=== PATIENT | male | born 1955 | race Caucasian/White ===

== ENCOUNTER → 2018-10-07 | Outpatient (CLI) | payer MEDICARE, OTHER ==
[~2018-10-07] MED LIST: CATHETER FLUSH 10 ML SYR IV PRN
--- NOTE | 2018-10-07 18:16 | Diagnostic Imaging Report ---
INDICATION: Right upper quadrant pain. TECHNIQUE: Patient was administered 5.4 mCi technetium 99m Choletec intravenously and imaging over the abdomen was performed. At 60 minutes, patient ingested 8 ounces of Ensure and gallbladder ejection fraction was calculated. FINDINGS: There is homogeneous uptake of activity by the liver with prompt excretion of activity into the common duct and gallbladder. Normal passage of activity into the small bowel is seen. Gallbladder ejection fraction is 96%. IMPRESSION: 1. No evidence of cystic duct or common bile duct obstruction. 2. Gallbladder ejection fraction of 96%. Dictated by: Dictated on workstation # [id number]
== END ==
LOC: CARD 09:50 → EDUNIT# 10:00
PROVIDERS: ATTEND Family Medicine
DX: R10.11 Right upper quadrant pain (principal)
CPT/HCPCS: 78227

== ENCOUNTER 2018-10-25 06:08 | Outpatient (CLI) | payer OTHER ==
[~2018-10-25] VITALS: Ht 181.6 cm; Wt 136.1 kg
[2018-10-25] MEDS ORDERED: LOSA25TA6 PO (09:17)
[2018-10-25] MEDS ORDERED: CYAN50008 PO (09:17)
[2018-10-25] MEDS ORDERED: INSU100V6 SQ (09:17)
[2018-10-25] MEDS ORDERED: SENN25TA PO (09:17)
[2018-10-25] MEDS ORDERED: METO-310 PO (09:17)
[2018-10-25] MEDS ORDERED: METF-397 PO (09:17)
[2018-10-25] MEDS ORDERED: ONDN4T PO (09:17)
[2018-10-25] MEDS ORDERED: ATOR40TA70 PO (09:17)
[2018-10-25] MEDS ORDERED: MELA5CAP PO (09:17)
[2018-10-25] MEDS ORDERED: INSU100V16 SQ ×2 (09:17)
[2018-10-25] MEDS ORDERED: AMLO5TAB7 PO (09:17)
[2018-10-25] MEDS ORDERED: SERT50TA2 PO (09:17)
[2018-10-25] MEDS ORDERED: EXEN2VIA SQ (09:17)
[2018-10-25] MEDS ORDERED: RANI150T46 PO (09:17)
== END 2018-10-25 09:18 | disposition home or self-care (01) ==
LOC: PREOP 06:08
PROVIDERS: ATTEND Surgery
DX: Z01.818 Encounter for other preprocedural examination (principal)

== ENCOUNTER 2018-10-29 10:50 | Day surgery (SDC) | payer OTHER ==
[~2018-10-29] VITALS: Ht 181.6 cm; Wt 136.1 kg
[~2018-10-29 10:50] MED LIST changes: +AMLO5TAB7 PO; +ATOR40TA70 PO; -CATHETER FLUSH 10 ML SYR IV PRN; +CYAN50008 PO; +EXEN2VIA SQ; +INSU100V16 SQ; +INSU100V6 SQ; +LOSA25TA6 PO; +MELA5CAP PO; +METF-397 PO; +METO-310 PO; +ONDN4T PO; +RANI150T46 PO; +SENN25TA PO; +SERT50TA2 PO
--- NOTE | 2018-10-29 10:54 | Conscious Sedation/ASA ---
Conscious Sedation Pre-Proced Time 10:50 ASA Score 2 For ASA 3 and 4: Consider anesthesia and medical clearance. Also, for patients with a history of failed moderate sedation consider anesthesia. Airway Lungs Heart ASA score ASA 1: a normal healthy patient ASA 2: a patient with a mild systemic disease (mid diabetes, controlled hypertension, obesity ASA 3: a patient with a severe systemic disease that limits activity (angina , COPD, prior Myocardial infarction) ASA 4: a patient with an incapacitating disease that is a constant threat to life (CHF, renal failure) ASA 5: a moribund patient not expected to survive 24 hrs. (ruptured aneurysm) ASA 6: a declared brain patient whose organs are being harvested. For emergent operations, add the letter E after the classification Mallampati Classification Grade 2 Sedation Plan Analgesia, Amnesia, Plan communicated to team members, Discussed options with patient/fam, Discussed risks with patient/fam The patient is an appropriate candidate to undergo the planned procedure, sedation, and anesthesia. The patient immediately re-assessed prior to indication. VIGNESH ARGUELLO MD Oct 29, 2018 10:54
--- NOTE | 2018-10-29 10:55 | Progress Note-Pre Operative ---
Pre-Operative Progress Note H&P Reviewed The H&P was reviewed, patient examined and no changes noted. Date Seen by Provider: Oct 29, 2018 Time Seen by Provider: 10:50 Date H&P Reviewed: Oct 29, 2018 Time H&P Reviewed: 10:50 Pre-Operative Diagnosis: GERD, hx colon polyp VIGNESH ARGUELLO MD Oct 29, 2018 10:55
[2018-10-29] MEDS ORDERED: PANT40TA2 PO (10:56)
--- NOTE | 2018-10-29 10:57 | Discharge Inst-Surgical ---
D/C Lap Instructions-KIDO New, Converted, or Re-Newed RX: RX on Chart Follow Up PRN or 10 yrs Activity as tolerated High Fiber Diet 25g or more per day Avoid Alcohol, Caffeine, Spicy [place] and Acid foods. Drink 64 fluid oz or more of fluids per day. Symptoms to Report: Fever over 101 degree F, Nausea/Vomiting If any problems/questions: Contact your physician or go to Emergency Room VIGNESH ARGUELLO MD Oct 29, 2018 10:57
[2018-10-29] MEDS ORDERED: ACETAMINOPHEN 325 MG TABLET PO PRN (11:00)
[2018-10-29] MEDS ORDERED: morphine INJ 10 MG/ML 1ML (SYR OR VIAL) IV PRN (11:00)
[2018-10-29] MEDS ORDERED: HYDROcodone/APAP 5 MG/325 MG (LORTAB) TAB PO PRN (11:00)
[2018-10-29] MEDS ORDERED: ONDANSETRON 4 MG/2 ML (SDV) Z0FRAN IV PRN (11:00)
[2018-10-29] MEDS ORDERED: LACTATED RINGERS 1,000 ML IV ONE (11:10)
[2018-10-29] MEDS ORDERED: PROPOFOL INJECTION 50 ML IV ONE ×2 (11:19→11:52)
[2018-10-29] MEDS ORDERED: MIDAZOLAM 2 MG/2 ML (VERSED) VIAL ONE (11:19)
[2018-10-29] MEDS ORDERED: LIDOCAINE JELLY 2% 6 ML SYRINGE ONE (11:32)
[2018-10-29] MEDS ORDERED: HURRICAINE EXT TUBE (BENZOCAINE) ONE (11:32)
[2018-10-29] MEDS ORDERED: LACTATED RINGERS 1,000 ML IV STA (11:51)
[2018-10-29 11:54] VITALS: BP 182/87
[2018-10-29] MEDS ORDERED: HURRICAINE EXT TUBE (BENZOCAINE) XX PRN (12:00)
[2018-10-29] MEDS ORDERED: LIDOCAINE JELLY 2% 6 ML SYRINGE MM PRN (12:00)
[2018-10-29 12:25] VITALS: BP 159/85
--- NOTE | 2018-10-29 12:33 | Progress Note-Post Operative ---
Post-Operative Progess Note Surgeon (s)/Electrical Fitter (s) Surgeon VIGNESH ARGUELLO MD Electrical Fitter: none Pre-Operative Diagnosis GERD, hx colon polyp Post-Operative Diagnosis reflux esophagitis(stage 2), small HH(1.5cm), moderate gastritis. mild chronic stage 2 ext and int hemorrhoids, small polyp ascending colon. Procedure & Operative Findings Date of Procedure 10/29/18 Procedure Performed/Findings EGD with bx. Colonoscopy with bx. Anesthesia Type MAC Estimated Blood Loss Estimated blood loss (mL): minimal Specimens/Packing Specimens Removed GE jxn, antrum, asc colon polyp VIGNESH ARGUELLO MD Oct 29, 2018 12:33
[2018-10-29 12:55] VITALS: BP 159/80
[2018-10-29 13:11] VITALS: BP 159/80
--- NOTE | 2018-10-29 21:51 | OPERATIVE REPORT ---
DATE OF SERVICE: 10/29/2018 ATTENDING PRIMARY CARE PHYSICIAN: Aida Weller MD PREOPERATIVE DIAGNOSES: History of colon polyps, gastroesophageal reflux disease. POSTOPERATIVE DIAGNOSES: Reflux esophagitis stage II, small hiatal hernia approximately 1.5 cm in size, moderate severity gastritis. Pylorus and duodenum appeared normal. Chronic stage II external and internal hemorrhoids, small polyp of the ascending colon approximately 4 mm in size. PROCEDURE: EGD with biopsy, colonoscopy with biopsy. SURGEON: Vignesh Arguello MD ANESTHESIA: Monitored anesthesia care. ESTIMATED BLOOD LOSS: Minimal. FINDINGS: EGD: Reflux esophagitis stage II. No ulcers or strictures. Small hiatal hernia approximately 1.5 cm in size, moderate severity gastritis with very small antral erosions, no formal ulcerations. Pylorus and duodenum appeared normal, and no distal obstructions. Colonoscopy: Chronic stage II external and internal hemorrhoids, small polyp of the ascending colon approximately 4 mm in size. DISPOSITION: The patient tolerated the procedure well. INDICATIONS: The patient is a 62-year-old male with epigastric as well as right upper abdominal quadrant pain, bloating as well as constipation. He states that his symptoms have been occurring for the past several weeks. He also reports nausea; however, no vomiting. He has had a CT scan of the abdomen, which was normal. He is now scheduled for HIDA scan, which has not been completed yet. He does currently take Zantac as well as Reglan and reports taking PPI acid reducers in the past. He reports that his reflux symptoms have also worsened. His last colonoscopy was approximately 5 years ago where a polyp was identified. He does not report any family history of colon cancer. DESCRIPTION OF PROCEDURE: The patient was brought to the operating room, laid in the left lateral decubitus position with head slightly elevated. After adequate IV pain and sedative medications and monitored anesthesia care, the mouthpiece was applied. The endoscope was then placed in the mouth visualizing the pharynx and hypopharyngeal region. Vocal cords, epiglottis and vallecula identified and appeared to be normal. The endoscope was then gently intubated at the esophageal opening and esophagus insufflated. The endoscope was then advanced to the first, second and third portion of the esophagus at the level of GE junction, a reflux esophagitis stage II identified. There were no ulcers or strictures identified in this region. A biopsy was taken using forceps with visualization of good hemostasis. The endoscope was then advanced in the stomach and endoscope retroflexed, visualizing a small hiatal hernia approximately 1.5 cm in size. There was a moderate severity gastritis more focused towards antrum with some small antral erosions; however, no formal ulcerations. A biopsy was taken of the antrum to rule out H. pylori with forceps with visualization of good hemostasis. Endoscope was then advanced to the pylorus into the first and second portion of the duodenum, which appeared normal. No distal obstructions. The endoscope was slowly withdrawn while taking a second look and suctioning of residual air with no additional findings. The patient tolerated this portion of the procedure well. For his reflux esophagitis, hiatal hernia and gastritis, we will recommend the necessary lifestyle and diet accommodation including small and more frequent meals, avoiding to eating at night as well as head elevation while lying supine. He also needs to avoid caffeinated beverages, spicy, greasy and acidic foods. We will also start him on Protonix 40 mg daily. Under the same anesthesia, we then proceeded with the colonoscopy portion of procedure. A digital rectal examination was performed, which revealed mild chronic stage II external and internal hemorrhoids, not actively edematous nor inflamed and no bleeding. Normal sphincter tone was felt and there were no palpable masses. Prostate gland was palpable and appeared normal. The endoscope was then intubated into the anus and rectum gently insufflated. The endoscope was then advanced to the valves of Nichols of the rectum with no polyps or any neoplasms identified. We then proceeded through the sigmoid colon where no diverticulosis identified. The endoscope was then advanced to the remainder of the descending, transverse, and ascending colon. At the ascending colon, a small polyp approximately 3 to 4 mm in size were identified. This was biopsied and destroyed using forceps and electrocautery with visualization of good hemostasis. The endoscope was then advanced to the cecum, which was normal. The endoscope was then slowly withdrawn while taking a second look and suctioning of residual air with no additional findings. The patient tolerated the procedure well. We will recommend a high fiber diet with at least 30 grams of fiber per day as well as copious amounts of water to promote soft stools on a daily basis. He does not have any family history of colon cancer and we will await the biopsy results and if this is a benign hyperplastic polyp, he may wait 10 years; however; if there is any villous component to an adenomatous polyp, we will then recommend three years. Job ID: [id number] DocumentID: [id number] Dictated Date: 10/29/2018 12:19:26 Pediatric Clinical Dietician Date: 10/29/2018 21:50:40 Dictated By: VIGNESH ARGUELLO MD
== END 2018-10-29 13:05 | disposition home or self-care (01) ==
LOC: ENDO 10:50
PROVIDERS: ATTEND Surgery
DX: Z12.11 Encounter for screening for malignant neoplasm of colon (principal); D12.2 Benign neoplasm of ascending colon; K64.1 Second degree hemorrhoids; K21.0 Gastro-esophageal reflux disease with esophagitis; K44.9 Diaphragmatic hernia without obstruction or gangrene; I10 Essential (primary) hypertension; E11.9 Type 2 diabetes mellitus without complications; E66.01 Morbid (severe) obesity due to excess calories; Z68.41 Body mass index [BMI] 40.0-44.9, adult; Z79.4 Long term (current) use of insulin; Z79.899 Other long term (current) drug therapy
CPT/HCPCS: 82962

== ENCOUNTER 2018-11-06 07:45 | Emergency (ER) | payer OTHER | END 2018-11-06 11:09 | disposition home or self-care (01) | LOC: ER 07:45 ==

== ENCOUNTER → 2018-11-18 | Outpatient (CLI) | payer OTHER ==
[~2018-11-18] MED LIST changes: -AMLO5TAB7 PO; +AMLO5TAB9 PO; +LOSA25TA41 PO; -LOSA25TA6 PO; +PANT40TA2 PO
== END ==
LOC: CARD 08:16
PROVIDERS: ATTEND Internal Medicine Interventional Cardiology
DX: R42 Dizziness and giddiness (principal); R55 Syncope and collapse
CPT/HCPCS: 93225; 93226

== ENCOUNTER → 2018-12-02 | Outpatient (CLI) | payer OTHER ==
[2018-12-02] VITALS (14 sets, daily range): BP systolic 73–170; BP diastolic 41–102
[~2018-12-02] VITALS: Ht 180.3 cm; Wt 136.1 kg
[~2018-12-02] MED LIST changes: +ATROPINE INJECTION 1 MG/10 ML SYR (ABBOTT) INJ PRN; +ATROPINE INJECTION 1 MG/10 ML SYR (ABBOTT) ONE; +MECL-106 PO; +NS IV 1000 ML 1,000 ML IV ONE; +NS IV 1000 ML 1,000 ML ONE
--- NOTE | 2018-12-02 11:04 | NUR ---
all discharge instructions and follow up appointment information were given to patient in print out form and discussed. patient verbalized understanding.
--- NOTE | 2018-12-02 12:16 | Cardiology Tilt Table Test ---
Cardiology-Tilt Table Test Tilt Table Test Date 12/02/18 Baseline Vitals Vital Signs Date Time Temp Pulse Resp B/P (MAP) Pulse Ox O2 Delivery O2 Flow Rate FiO2 12/02/18 10:19 104 18 167/94 (118) 99 Room Air Vital Signs VS - Last 72 Hours, by Label 12/02/18 12/02/18 12/02/18 12/02/18 10:19 10:24 10:25 10:26 Pulse 104 106 110 107 Resp 18 18 18 20 B/P (MAP) 167/94 (118) 170/102 (124) 168/96 (120) 158/96 (116) Pulse Ox 99 99 98 98 O2 Delivery Room Air Room Air Room Air Room Air 12/02/18 12/02/18 12/02/18 12/02/18 10:27 10:28 10:29 10:30 Pulse 108 93 64 100 Resp 20 20 16 18 B/P (MAP) 160/92 (114) 140/41 (74) 73/50 (58) Pulse Ox 98 98 98 97 O2 Delivery Room Air Room Air Room Air Room Air 12/02/18 12/02/18 12/02/18 12/02/18 10:31 10:32 10:33 10:34 Pulse 96 97 94 98 Resp 18 18 18 18 B/P (MAP) 168/88 (114) 160/90 (113) 162/92 (115) Pulse Ox 97 98 98 98 O2 Delivery Room Air Room Air Room Air Room Air 12/02/18 12/02/18 12/02/18 12/02/18 10:35 10:38 10:44 11:03 Pulse 95 95 93 93 Resp 18 18 18 18 B/P (MAP) 159/96 (117) 158/98 (118) 169/96 (120) 168/87 Pulse Ox 98 97 97 97 O2 Delivery Room Air Room Air Room Air Room Air Patient was tilted to 75 degrees for [10] minutes, at 6 minutes the patient passed out with systolic BP 73mmhg, heart rate 64bpm. Immediately placed supine and iv fluids given. Patient improved promptly. During test, patient was: symptomatic In Conclusion;: Positive Tilt Table Test Paul FRANCISCO MD Dec 02, 2018 12:16
== END ==
LOC: CARD 09:50
PROVIDERS: ATTEND Internal Medicine Interventional Cardiology
DX: R42 Dizziness and giddiness (principal); R55 Syncope and collapse
CPT/HCPCS: 93660

== ENCOUNTER 2018-12-04 13:34 | Emergency (ER) | payer OTHER ==
[~2018-12-04] VITALS: Ht 180.3 cm; Wt 133.8 kg
[~2018-12-04 13:34] MED LIST changes: -ATROPINE INJECTION 1 MG/10 ML SYR (ABBOTT) INJ PRN; -ATROPINE INJECTION 1 MG/10 ML SYR (ABBOTT) ONE; -MECL-106 PO; -NS IV 1000 ML 1,000 ML IV ONE; -NS IV 1000 ML 1,000 ML ONE
[2018-12-04] MEDS ORDERED: ASPIRIN 81 MG CHEW (CHILDREN'S ASA) PO ONE (14:00)
--- NOTE | 2018-12-04 14:02 | ED Cardiac General ---
History of Present Illness General Chief Complaint: Chest Pain Stated Complaint: CHEST PAIN Nursing Triage Note: AMB TO ROOM REPORTS HAS TILT TABLE ON THURSDAY FOR CHEST PAIN AND SOA AND DIZZINESS. TODAY FELT LIKE HE HAD INCREAS OF BEING DIZZY AND SOA. Source: patient Exam Limitations: no limitations History of Present Illness Date Seen by Provider: Dec 04, 2018 Time Seen by Provider: 13:50 Initial Comments 62-year-old male who presents to the emergency room with complaints of left- sided chest pain and shortness of air that started at 5:00 this morning. He also reports that he's had increase in his dizziness. Last week he had a tilt table test for increased dizziness, chest pain, lightheadedness. He reports that he has these episodes frequently. Allergies and Home Medications Allergies Coded Allergies: No Known Drug Allergies (Unverified , 10/25/18) Home Medications Amlodipine Besylate 5 Mg Tablet, 5 MG PO DAILY, (Reported) Atorvastatin Calcium 40 Mg Tablet, 40 MG PO HS, (Reported) Cyanocobalamin (Vitamin B-12) 5,000 Mcg Tab.rapdis, 5,000 MCG PO DAILY, ( Reported) Exenatide Microspheres 2 Mg Vial, SQ WEEK, (Reported) Insulin Aspart 100 Unit/1 Ml Susp, SQ BREAKFAST AND SUPPER, (Reported) Insulin Aspart 100 Unit/1 Ml Susp, 25 UNIT SQ LUNCH, (Reported) Insulin Glargine,Hum.rec.anlog 100 Unit/1 Ml Vial, 80 UNIT SQ BID, (Reported) Losartan Potassium 25 Mg Tablet, 25 MG PO DAILY, (Reported) Melatonin 5 Mg Capsule, 5 MG PO DAILY, (Reported) Metformin HCl 500 Mg Tablet, 1,000 MG PO BID, (Reported) Metoclopramide HCl 10 Mg Tablet, 10 MG PO ACHS, (Reported) Ondansetron HCl 4 Mg Tab, 4 MG PO Q4H PRN for NAUSEA/VOMITING-1ST LINE, ( Reported) Pantoprazole Sodium 40 Mg Tablet.dr, 40 MG PO DAILY Prescribed by: VIGNESH ARGUELLO on 10/29/18 1056 Ranitidine HCl 150 Mg Tablet, 150 MG PO BID, (Reported) Sennosides 25 Mg Tablet, 25 MG PO HS, (Reported) Sertraline HCl 50 Mg Tablet, 50 MG PO DAILY, (Reported) Past Rqzbglh-Ylmyvn-Rtogoe Hx Patient Social History Alcohol Use: Denies Use Recreational Drug Use: No Smoking Status: Never a Smoker Former Smoker, Quit: Oct 25, 1974 Recent Foreign Travel: No Contact w/Someone Who Travel: No Recent Infectious Disease Expo: No Recent Hopitalizations: No Immunizations Up To Date Date of Influenza Vaccine: Jul 26, 2018 Seasonal Allergies Seasonal Allergies: No Past Medical History Surgeries: No Respiratory: No Cardiac: Yes High Cholesterol, Hypertension Neurological: No Sexually Transmitted Disease: No HIV/AIDS: No Genitourinary: No Gastrointestinal: Yes Gastroesophageal Reflux, Chronic Constipation Musculoskeletal: Yes Arthritis, Chronic Back Pain Endocrine: Yes Diabetes, Insulin dep HEENT: Yes (GLASSES) Loss of Vision: Bilateral Hearing Impairment: Denies Cancer: No Psychosocial: Yes Anxiety, Depression Integumentary: No Blood Disorders: No Adverse Reaction/Blood Tranf: No Physical Exam Vital Signs Vital Signs - First Documented 12/04/18 13:34 Temp 98.0 Pulse 96 Resp 18 B/P (MAP) 144/106 (119) Pulse Ox 94 O2 Delivery Room Air Capillary Refill : Less Than 3 Seconds Height, Weight, BMI Height: 5'11.00" Weight: 295lbs. 0.0oz. 133.859451ap; 41.8 BMI Method:Stated Progress/Results/Core Measures Results/Orders Lab Results Laboratory Tests Test 12/04/18 13:41 12/04/18 16:57 Range/Units White Blood Count 12.7 H 4.3-11.0 10^3/uL Red Blood Count 5.12 4.35-5.85 10^6/uL Hemoglobin 15.0 13.3-17.7 G/DL Hematocrit 45 40-54 % Mean Corpuscular Volume 87 80-99 FL Mean Corpuscular Hemoglobin 29 25-34 PG Mean Corpuscular Hemoglobin Concent 34 32-36 G/DL Red Cell Distribution Width 14.8 H 10.0-14.5 % Platelet Count 360 130-400 10^3/uL Mean Platelet Volume 9.5 7.4-10.4 FL Neutrophils (%) (Auto) 78 H 42-75 % Lymphocytes (%) (Auto) 12 12-44 % Monocytes (%) (Auto) 9 0-12 % Eosinophils (%) (Auto) 1 0-10 % Basophils (%) (Auto) 0 0-10 % Neutrophils # (Auto) 9.9 H 1.8-7.8 X 10^3 Lymphocytes # (Auto) 1.6 1.0-4.0 X 10^3 Monocytes # (Auto) 1.1 H 0.0-1.0 X 10^3 Eosinophils # (Auto) 0.1 0.0-0.3 10^3/uL Basophils # (Auto) 0.0 0.0-0.1 10^3/uL Prothrombin Time 12.9 12.2-14.7 SEC INR Comment 1.0 0.8-1.4 Activated Partial Thromboplast Time 38 H 24-35 SEC D-Dimer 0.44 0.00-0.49 UG/ML Sodium Level 135 135-145 MMOL/L Potassium Level 3.8 3.6-5.0 MMOL/L Chloride Level 100 98-107 MMOL/L Carbon Dioxide Level 24 21-32 MMOL/L Anion Gap 11 5-14 MMOL/L Blood Urea Nitrogen 6 L 7-18 MG/DL Creatinine 0.87 0.60-1.30 MG/DL Estimat Glomerular Filtration Rate > 60 BUN/Creatinine Ratio 7 Glucose Level 95 70-105 MG/DL Calcium Level 10.1 8.5-10.1 MG/DL Corrected Calcium 8.5-10.1 MG/DL Magnesium Level 2.3 1.8-2.4 MG/DL Total Bilirubin 0.5 0.1-1.0 MG/DL Aspartate Amino Transf (AST/SGOT) 42 H 5-34 U/L Alanine Aminotransferase (ALT/SGPT) 42 0-55 U/L Alkaline Phosphatase 79 40-136 U/L Myoglobin 117.2 H 10.0-92.0 NG/ML Troponin I < 0.028 <0.028 NG/ML B-Type Natriuretic Peptide 12.8 <100.0 PG/ML Total Protein 8.3 H 6.4-8.2 GM/DL Albumin 4.7 H 3.2-4.5 GM/DL Amylase Level 65 25-125 U/L Lipase 24 8-78 U/L My Orders Orders - LNIDA MERCADO Cbc With Automated Diff (12/04/18 13:55) Magnesium (12/04/18 13:55) Chest 1 View, Ap/Pa Only (12/04/18 13:55) Ekg Tracing (12/04/18 13:55) Cardiac Profile 1 (12/04/18 13:55) Comprehensive Metabolic Panel (12/04/18 13:55) Myoglobin Serum (12/04/18 13:55) Protime With Inr (12/04/18 13:55) Partial Thromboplastin Time (12/04/18 13:55) O2 (12/04/18 13:55) Monitor-Rhythm Ecg Trace Only (12/04/18 13:55) Lipid Panel (12/05/18 06:00) Aspirin Chewable Tablet (Baby Aspirin Ch (12/04/18 14:00) Saline Lock/Iv-Start (12/04/18 13:55) Lipase (12/04/18 13:55) Amylase (12/04/18 13:55) BNP (12/04/18 13:55) Fibrin Degradation Products (12/04/18 13:41) Ondansetron Injection (Zofran Injectio (12/04/18 14:30) Promethazine Injection (Phenergan Injec (12/04/18 15:30) Troponin I (12/04/18 16:17) Medications Given in ED Current Medications Medications Dose Ordered Sig/Cory Route Start Time Stop Time Status Last Admin Dose Admin Aspirin 324 mg ONCE ONCE PO 12/04/18 14:00 12/04/18 14:01 DC 12/04/18 14:05 324 MG Ondansetron HCl 4 mg ONCE ONCE IVP 12/04/18 14:30 12/04/18 15:59 DC 12/04/18 14:05 4 MG Promethazine HCl 25 mg STK-MED ONCE .ROUTE 12/04/18 15:30 12/04/18 15:59 DC 12/04/18 15:34 25 MG Vital Signs/I&O 12/04/18 13:34 Temp 98.0 Pulse 96 Resp 18 B/P (MAP) 144/106 (119) Pulse Ox 94 O2 Delivery Room Air Blood Pressure Mean: 119 Departure Impression Primary Impression: Chest pain Additional Impression: Syncopal episodes Disposition: 01 HOME, SELF-CARE Condition: Stable/Unchanged Departure-Patient Inst. Decision time for Depature: 17:56 Referrals: CARMEN ERNST MD (PCP/Family) Primary Care Physician Patient Instructions: Chest Pain That Is Not Caused by the Heart (DC), Pleuritic Chest Pain (DC), Syncope (Fainting) Add. Discharge Instructions: Take medications as directed for dizziness. Return back to the emergency room for worsening chest pain, shortness of breath, or any other concerns as needed. Follow-up with your primary care provider within 1 week for recheck. All discharge instructions reviewed with patient and/or family. Voiced understanding. Scripts Meclizine HCl (Meclizine HCl) 25 Mg Tablet 25 MG PO BID for 4 Days, #8 TAB Prov: LINDA MERCADO 12/04/18 LINDA MERCADO Dec 04, 2018 14:02
[2018-12-04 14:03] LABS: BASOPHILS % (AUTO) 0 % (0-10); EOSINOPHILS # (AUTO) 0.1 10^3/uL (0.0-0.3); EOSINOPHILS % (AUTO) 1 % (0-10); HEMATOCRIT 45 % (40-54); LYMPHOCYTES # (AUTO) 1.6 X 10^3 (1.0-4.0); LYMPHOCYTES % (AUTO) 12 % (12-44); MEAN CORPUSCULAR HEMOGLOBIN 29 PG (25-34); MEAN CORPUSCULAR HGB CONC 34 G/DL (32-36); MEAN CORPUSCULAR VOLUME 87 FL (80-99); MEAN PLATELET VOLUME 9.5 FL (7.4-10.4); MONOCYTES # (AUTO) 1.1 X 10^3 (0.0-1.0); MONOCYTES % (AUTO) 9 % (0-12); NEUTROPHILS # (AUTO) 9.9 X 10^3 (1.8-7.8); NEUTROPHILS % (AUTO) 78 % (42-75); PLATELET COUNT 360 10^3/uL (130-400); RED CELL DISTRIBUTION WIDTH 14.8 % (10.0-14.5); WHITE BLOOD COUNT 12.7 10^3/uL (4.3-11.0)
[2018-12-04 14:07] LABS: PROTHROMBIN TIME PATIENT 12.9 SEC (12.2-14.7)
[2018-12-04 14:15] LABS: ALANINE AMINOTRANSFERASE 42 U/L (0-55); ALBUMIN 4.7 GM/DL (3.2-4.5); ALKALINE PHOSPHATASE 79 U/L (40-136); AMYLASE 65 U/L (25-125); BILIRUBIN,TOTAL 0.5 MG/DL (0.1-1.0); BUN/CREATININE RATIO 7; CALCIUM 10.1 MG/DL (8.5-10.1); CARBON DIOXIDE 24 MMOL/L (21-32); CHLORIDE 100 MMOL/L (98-107); CREATININE SERUM 0.87 MG/DL (0.60-1.30); GFR ESTIMATED > 60; GLUCOSE 95 MG/DL (70-105); LIPASE 24 U/L (8-78); MAGNESIUM 2.3 MG/DL (1.8-2.4); POTASSIUM 3.8 MMOL/L (3.6-5.0); SODIUM 135 MMOL/L (135-145); TOTAL PROTEIN 8.3 GM/DL (6.4-8.2)
[2018-12-04 14:22] LABS: MYOGLOBIN SERUM 117.2 NG/ML (10.0-92.0)
--- NOTE | 2018-12-04 14:24 | Diagnostic Imaging Report ---
INDICATION: Chest pain. FINDINGS: Upright chest shows normal heart size and vascularity. The lungs are clear. There is no effusion or pneumothorax. IMPRESSION: Normal chest with no change from 11/06/2018. Dictated by: Dictated on workstation # [id number]
[2018-12-04] MEDS ORDERED: ONDANSETRON 4 MG/2 ML (SDV) Z0FRAN IVP ONE (14:30)
[2018-12-04] MEDS ORDERED: PROMETHAZINE INJ 25 MG/ML (PHENERGAN) AMP ONE (15:30)
[2018-12-04 17:16] LABS: FIBRIN DEGRADATION PRODUCTS 0.44 UG/ML (0.00-0.49)
[2018-12-04] MEDS ORDERED: MECL-106 PO (17:59)
--- NOTE | 2018-12-04 18:22 | NUR ---
JOY REPORTS THAT HE IS GETTING DIZZY AGAIN.
[2018-12-04] MEDS ORDERED: MECLIZINE 25 MG (ANTIVERT) TAB PO ONE (18:30)
--- NOTE | 2018-12-04 18:39 | NUR ---
PATIENT FELT LIKE HIS BS FS DONE FS 75
--- NOTE | 2018-12-04 18:45 | NUR ---
FOOD TRAY ORDERED
--- NOTE | 2018-12-04 18:52 | NUR ---
REPORT TO NO
--- NOTE | 2018-12-04 19:15 | NUR ---
COLD TRAY WITH ICE WATER DELIVERED TO PT ROOM. PT REPORTS HEADACHE.
[2018-12-04 19:57] VITALS: BP 119/82
== END 2018-12-04 19:59 | disposition home or self-care (01) ==
LOC: EDUNIT# 13:49 → ER 13:50
DX: R07.89 Other chest pain (principal); R55 Syncope and collapse; E78.00 Pure hypercholesterolemia, unspecified; I10 Essential (primary) hypertension; K21.9 Gastro-esophageal reflux disease without esophagitis; E11.9 Type 2 diabetes mellitus without complications; F41.9 Anxiety disorder, unspecified; F32.9 Major depressive disorder, single episode, unspecified; Z87.19 Personal history of other diseases of the digestive system; Z79.4 Long term (current) use of insulin; Z87.891 Personal history of nicotine dependence
CPT/HCPCS: 36415; 71045; 80053; 82150; 82962; 83690; 83735; 83874; 83880; 84484; 85025; 85379; 85610; 85730; 93041

== ENCOUNTER → 2018-12-09 | Outpatient (CLI) | payer OTHER ==
[~2018-12-09] VITALS: Ht 180.3 cm; Wt 120.7 kg
[~2018-12-09] MED LIST changes: +MECL-106 PO; +REGADENOSON 0.4 MG/5 ML SYR (LEXISCAN) IV ONE
[2018-12-09] MEDS: CATHETER FLUSH 10 ML SYR IV PRN ×2 (07:45→09:08)
[2018-12-09 09:05] VITALS: BP 165/94
--- NOTE | 2018-12-10 13:36 | Cardiology Stress Test Report ---
Stress Test Report Type of NM Stress Test: Test Type: LEXISCAN 0.4MG/5ML Date of Procedure/Referring: Date of Procedure: Dec 09, 2018 PCP Paul Fernandez MD Admitting Physician Aida Weller MD Indications: Chest pain Baseline Heart Rate: 96 Baseline Blood Pressure: Blood Pressure Systolic: 165 Blood Pressure Diastolic: 94 Baseline EKG: Baseline EKG: sinus rhythm Summary & Conclusion: Summary: The patient was brought to the stress lab after informed consent was taken. Stress test was performed according to the Lexiscan protocol. 0.4 mg of IV Lexiscan was given. Low-grade exercise was performed. Baseline EKG showed sinus rhythm at 96 BPM. Initial blood pressure was 165/94 mmHg. Maximum heart rate was 115 bpm and blood pressure 152/95 mmHg. Patient did not have any chest pain, arrhythmias or ST segment changes during the stress test. 10.81 mCi of Myoview were given for rest imaging and 32.7 mCi of Myoview given for stress imaging. Transient ischemic dilatation score 0.98, EF 77 percent. Normal wall motion. Normal myocardial perfusion imaging during rest and stress. Conclusion: Pharmacological stress test was negative for ischemia. Normal LV function with no wall motion abnormalities. Normal myocardial perfusion imaging during rest and stress. Paul FERNANDEZ MD Dec 10, 2018 1:35 pm
== END ==
LOC: CARD 07:24
PROVIDERS: ATTEND Internal Medicine Interventional Cardiology
DX: I10 Essential (primary) hypertension (principal); R07.9 Chest pain, unspecified; R42 Dizziness and giddiness; R55 Syncope and collapse; E11.9 Type 2 diabetes mellitus without complications; E78.5 Hyperlipidemia, unspecified
CPT/HCPCS: 78452; 93017

== ENCOUNTER 2023-06-18 13:44 | Emergency (ER) | payer MEDICARE, OTHER ==
[~2023-06-18] VITALS: Ht 180 cm; Wt 131.0 kg
[~2023-06-18 13:44] MED LIST changes: +AMLO-250 PO; -AMLO5TAB9 PO; -CYAN50008 PO; +CYAN50009 PO; -MECL-106 PO; +MECL-149 PO; +RANI-613 PO; -RANI150T46 PO; -REGADENOSON 0.4 MG/5 ML SYR (LEXISCAN) IV ONE
[2023-06-18 13:50] VITALS: BP 158/87
--- NOTE | 2023-06-18 13:59 | ED Upper Extremity ---
General Chief Complaint: Upper Extremity Stated Complaint: LT SHOULDER PAIN/INJ Source: patient Exam Limitations: no limitations History of Present Illness Date Seen by Provider: Jun 18, 2023 Time Seen by Provider: 13:49 Initial Comments 67-year-old male with past medical history of diabetes mostly coming in after he tripped on his cat landing on his left shoulder. Occurred over 2 hours ago. He has been ambulatory since the incident. Did not hit his head, did not pass out, no neck or back pain. Does not take any blood thinners. He is having moderate to severe left shoulder pain, worse with movement. He has not taken anything for the pain. Otherwise denying any other acute complaints. Allergies and Home Medications Allergies Coded Allergies: No Known Drug Allergies (Unverified , 10/25/18) Patient Home Medication List Home Medication List Reviewed: Yes Amlodipine Besylate (Amlodipine Besylate) 5 Mg Tablet, 5 MG PO DAILY, (Reported) Entered as Reported by: JULIO JAIN on 10/25/18916 Atorvastatin Calcium (Atorvastatin Calcium) 40 Mg Tablet, 40 MG PO HS, (Reported) Entered as Reported by: JULIO JAIN on 10/25/18916 Cyanocobalamin (Vitamin B-12) (Vitamin B12) 5,000 Mcg Tab.rapdis, 5,000 MCG PO DAILY, (Reported) Entered as Reported by: JULIO JAIN on 10/25/18916 Exenatide Microspheres (Bydureon) 2 Mg Vial, SQ WEEK, (Reported) Entered as Reported by: JULIO JAIN on 10/25/18916 Hydrocodone/Acetaminophen (Hydrocodone-Acetamin 5-325 mg) 5 Mg-325 Mg Tablet, 1 TAB PO Q6H PRN for PAIN-MODERATE (5-7) Prescribed by: EDA ORTEGA on 06/18/23 1429 Insulin Aspart (Novolog) 100 Unit/1 Ml Susp, SQ BREAKFAST AND SUPPER, (Reported) Entered as Reported by: JULIO JAIN on 10/25/18916 Insulin Aspart (Novolog) 100 Unit/1 Ml Susp, 25 UNIT SQ LUNCH, (Reported) Entered as Reported by: JULIO JAIN on 10/25/18916 Insulin Glargine,Hum.rec.anlog (Lantus) 100 Unit/1 Ml Vial, 80 UNIT SQ BID, (Reported) Entered as Reported by: JULIO JAIN on 10/25/18916 Losartan Potassium (Losartan Potassium) 25 Mg Tablet, 25 MG PO DAILY, (Reported) Entered as Reported by: JULIO JAIN on 10/25/18916 Meclizine HCl (Meclizine HCl) 25 Mg Tablet, 25 MG PO BID Prescribed by: LINDA MERCADO on 12/04/18 175 Melatonin (Melatonin) 5 Mg Capsule, 5 MG PO DAILY, (Reported) Entered as Reported by: JULIO JAIN on 10/25/18916 Metformin HCl (Metformin HCl) 500 Mg Tablet, 1,000 MG PO BID, (Reported) Entered as Reported by: JULIO JAIN on 10/25/18916 Metoclopramide HCl (Reglan) 10 Mg Tablet, 10 MG PO ACHS, (Reported) Entered as Reported by: JULIO JAIN on 10/25/18916 Ondansetron HCl (Zofran) 4 Mg Tab, 4 MG PO Q4H PRN for NAUSEA/VOMITING-1ST LINE, (Reported) Entered as Reported by: JULIO JAIN on 10/25/18916 Pantoprazole Sodium (Protonix) 40 Mg Tablet.dr, 40 MG PO DAILY Prescribed by: VIGNESH ARGUELLO on 10/29/18 1056 Ranitidine HCl (Zantac) 150 Mg Tablet, 150 MG PO BID, (Reported) Entered as Reported by: JULIO JAIN on 10/25/18916 Sennosides (Ex-Lax Maximum Strength) 25 Mg Tablet, 25 MG PO HS, (Reported) Entered as Reported by: JULIO JAIN on 10/25/18916 Sertraline HCl (Zoloft) 50 Mg Tablet, 50 MG PO DAILY, (Reported) Entered as Reported by: JULIO JAIN on 10/25/18916 Review of Systems Constitutional: No fever EENTM: no symptoms reported Respiratory: no symptoms reported Cardiovascular: no symptoms reported Gastrointestinal: no symptoms reported Genitourinary: no symptoms reported Musculoskeletal: see HPI Skin: no symptoms reported Psychiatric/Neurological: No Symptoms Reported Past Nfnwlib-Kgtnzm-Rqeecz Hx Patient Social History Tobacco Use?: No Seasonal Allergies Seasonal Allergies: No Past Medical History Surgeries: No Respiratory: No Cardiac: Yes High Cholesterol, Hypertension Neurological: No Sexually Transmitted Disease: No HIV/AIDS: No Genitourinary: No Gastrointestinal: Yes Gastroesophageal Reflux, Chronic Constipation Musculoskeletal: Yes Arthritis, Chronic Back Pain Endocrine: Yes Diabetes, Insulin dep HEENT: Yes (GLASSES) Loss of Vision: Bilateral Hearing Impairment: Denies Cancer: No Psychosocial: Yes Anxiety, Depression Integumentary: No Blood Disorders: No Adverse Reaction/Blood Tranf: No Physical Exam Vital Signs Vital Signs - First Documented 06/18/23 13:50 Temp 36.3 Pulse 87 Resp 16 B/P (MAP) 158/87 (110) Pulse Ox 95 O2 Delivery Room Air Capillary Refill : Height, Weight, BMI Height: 5'11.00" Weight: 266lbs. 0.0oz. 120.121064rz; 37.1 BMI Method:Stated General Appearance: WD/WN, no apparent distress HEENT: PERRL/EOMI, normal ENT inspection, pharynx normal Neck: non-tender, full range of motion, supple, normal inspection Cardiovascular: regular rate, rhythm, no edema Respiratory: chest non-tender, lungs clear, normal breath sounds, no respiratory distress, no accessory muscle use Gastrointestinal: normal bowel sounds, non tender, soft; No distended, No guarding, No rebound Back: normal inspection, no CVA tenderness, no vertebral tenderness Shoulder: pain (Left shoulder with pain superiorly with pain with range of motion that limits his range of motion) Elbow/Forearm: normal inspection, non-tender, no evidence of injury, normal ROM Wrist: Yes normal inspection, Yes non-tender, Yes no evidence of injury, Yes normal ROM Hand: normal inspection, non-tender (Specifically not tender over the scaphoid), no evidence of injury, normal ROM Neurologic/Tendon: normal sensation, normal motor functions, normal tendon functions Neurologic/Psychiatric: no motor/sensory deficits, alert, normal mood/affect, oriented x 3 Skin: normal color, warm/dry Progress/Results/Core Measures Results/Orders My Orders Orders - EDA ORTEGA MD Ct Head/Cervical Spine Wo (06/18/23 13:55) Shoulder 3 View Left (06/18/23 13:55) Hydrocodone/Apap 5/325 Tablet (Hydrocod (06/18/23 14:00) Medications Given in ED Current Medications Medications Dose Ordered Sig/Cory Route Start Time Stop Time Status Last Admin Dose Admin Acetaminophen/ Hydrocodone Bitart 1 ea ONCE ONCE PO 06/18/23 14:00 06/18/23 14:01 DC 06/18/23 14:03 1 EA Vital Signs/I&O 06/18/23 13:50 Temp 36.3 Pulse 87 Resp 16 B/P (MAP) 158/87 (110) Pulse Ox 95 O2 Delivery Room Air Progress Progress Note : Progress Note 67-year-old male with above history coming in after mechanical fall landing on his left shoulder. ABCs were intact and vital signs were stable on presentation with a GCS of 15. Physical exam with left shoulder pain and pain with range of motion He did not hit his head and has no symptoms in relation to his head or neck, however given his age unable to completely rule out injury, especially given how hard he hit. CT head and cervical spine ordered and interpreted by me showing no obvious intracranial hemorrhage or cervical spine fracture or dislocation. X-ray of the left shoulder also ordered and interpreted by me showing a proximal humerus fracture which is minimally displaced. He will be given a sling for comfort and a prescription for pain medication will be sent to his pharmacy. He should follow-up with orthopedics as an outpatient. I believe he is otherwise stable for discharge with outpatient follow-up. He was sent home with strict return precautions Diagnostic Imaging Diagonstic Imaging: Xray (left shoulder), CT (head and c spine) Comments NAME: EVENS COLBY [facility] REC#: [id number] PT STATUS: REG ER : 1955 PHYSICIAN: EDA ORTEGA MD ADMIT DATE: 06/18/23/ER FS Draft Date of Exam:06/18/23 CT HEAD/CERVICAL SPINE WO PROCEDURE: CT head and CT cervical spine without contrast. TECHNIQUE: Multiple contiguous axial images were obtained through the brain and cervical spine without the use of intravenous contrast. Sagittal and coronal reformations through the cervical spine were then performed. Auto Exposure Controls were utilized during the CT exam to meet ALARA standards for radiation dose reduction. INDICATION: Fall with injuries to head and neck. CT HEAD: COMPARISON: 11/06/2018. CT HEAD: CT images of the head were obtained. FINDINGS: Ventricles and sulci are within normal limits for size. There is no intracranial hemorrhage identified. There is no abnormal mass effect or shift of midline structures. IMPRESSION: Unremarkable CT of the head. CT CERVICAL SPINE: Multiple contiguous axial CT images of the cervical spine were obtained with sagittal and coronal reformatted images produced. FINDINGS: The cervical curvature and alignment are within normal limits. The vertebral body heights and disc spaces are maintained without evidence of fracture or subluxation. There is no paraspinous hematoma. There is moderate C5-C6 and C6-C7 degenerative disc disease. IMPRESSION: No CT evidence of acute cervical spinal abnormality. Dictated on workstation # [id number] Dict: 06/18/231420 Trans: 06/18/231424 [facility] [id number] Interpreted by: AVERY CROWLEY MD Electronically signed by: [facility] [place], [place] NAME: EVENS COLBY [facility] REC#: [id number] PT STATUS: REG ER : 1955 PHYSICIAN: EDA ORTEGA MD ADMIT DATE: 06/18/23/ER FS Draft Date of Exam:06/18/23 SHOULDER 3 VIEW LEFT CLINICAL HISTORY: Left shoulder pain. Fall. COMPARISON: None. TECHNIQUE: Three views of the left shoulder. FINDINGS: Acute comminuted fracture is seen involving the head and neck of the proximal left humerus. No dislocation of the left shoulder. The left chest is clear. IMPRESSION: 1. Acute comminuted fracture involving the head and neck of the proximal left humerus. Dictated on workstation # [id number] Dict: 06/18/231420 Trans: 06/18/231422 [id number] Interpreted by: DELFIN BERRY DO Electronically signed by: Departure Impression Primary Impression: Shoulder fracture, left Qualified Codes: S42.92XA - Fracture of left shoulder girdle, part unspecified, initial encounter for closed fracture Disposition: 01 HOME, SELF-CARE Condition: Stable Departure-Patient Inst. Decision time for Depature: 14:45 Referrals: RONALDO SHERIFF MD (PCP) Primary Care Physician ESTUARDO SALAZAR Patient Instructions: Shoulder Fracture (DC) Add. Discharge Instructions: The left shoulder is unfortunately broken. It often does not require surgery. We want you to follow-up with Charles Salazar who is an inclusion specialist that can follow this along and decide if it will eventually ever need surgery. Pain medications were sent to your pharmacy. Use the sling for comfort. You can take it off to bathe. Scripts Hydrocodone/Acetaminophen (Hydrocodone-Acetamin 5-325 mg) 5 Mg-325 Mg Tablet 1 TAB PO Q6H PRN for PAIN-MODERATE (5-7) for 4 Days, #16 TAB Prov: EDA ORTEGA MD 06/18/23 EDA ORTEGA MD Jun 18, 2023 13:59
[2023-06-18] MEDS ORDERED: HYDROcodone/ACETAMINOPHEN 5 MG/325 MG TABLET PO ONE (14:00)
--- NOTE | 2023-06-18 14:23 | Diagnostic Imaging Report ---
CLINICAL HISTORY: Left shoulder pain. Fall. COMPARISON: None. TECHNIQUE: Three views of the left shoulder. FINDINGS: Acute comminuted fracture is seen involving the head and neck of the proximal left humerus. No dislocation of the left shoulder. The left chest is clear. IMPRESSION: 1. Acute comminuted fracture involving the head and neck of the proximal left humerus. Dictated by: Dictated on workstation # [id number]
--- NOTE | 2023-06-18 14:25 | Diagnostic Imaging Report ---
PROCEDURE: CT head and CT cervical spine without contrast. TECHNIQUE: Multiple contiguous axial images were obtained through the brain and cervical spine without the use of intravenous contrast. Sagittal and coronal reformations through the cervical spine were then performed. Auto Exposure Controls were utilized during the CT exam to meet ALARA standards for radiation dose reduction. INDICATION: Fall with injuries to head and neck. CT HEAD: COMPARISON: 11/06/2018. CT HEAD: CT images of the head were obtained. FINDINGS: Ventricles and sulci are within normal limits for size. There is no intracranial hemorrhage identified. There is no abnormal mass effect or shift of midline structures. IMPRESSION: Unremarkable CT of the head. CT CERVICAL SPINE: Multiple contiguous axial CT images of the cervical spine were obtained with sagittal and coronal reformatted images produced. FINDINGS: The cervical curvature and alignment are within normal limits. The vertebral body heights and disc spaces are maintained without evidence of fracture or subluxation. There is no paraspinous hematoma. There is moderate C5-C6 and C6-C7 degenerative disc disease. IMPRESSION: No CT evidence of acute cervical spinal abnormality. Dictated by: Dictated on workstation # [id number]
[2023-06-18] MEDS ORDERED: ACHD5005 PO (14:28)
== END 2023-06-18 14:35 | disposition home or self-care (01) ==
LOC: EDUNIT# 13:44 → ER FS 13:46
DX: S42.292A Other displaced fracture of upper end of left humerus, initial encounter for closed fracture (principal); E11.9 Type 2 diabetes mellitus without complications; Z79.4 Long term (current) use of insulin; W01.0XXA Fall on same level from slipping, tripping and stumbling without subsequent striking against object, initial encounter
CPT/HCPCS: 70450; 72125; 73030

== ENCOUNTER 2023-06-27 19:38 | Emergency (ER) | payer MEDICARE ==
[~2023-06-27] VITALS: Ht 180.3 cm; Wt 122.8 kg
[~2023-06-27 19:38] MED LIST changes: +ACHD5005 PO
[2023-06-27 19:45] VITALS: BP 149/93
--- NOTE | 2023-06-27 19:55 | ED General ---
General Stated Complaint: MEDICATION REACTION Source of Information: Patient Exam Limitations: No Limitations History of Present Illness Date Seen by Provider: Jun 27, 2023 Time Seen by Provider: 19:40 Initial Comments 67-year-old male with past medical history of diabetes and recent left shoulder fracture coming in due to concerns for medication reaction. He broke his shoulder on June 18 after tripping over his cat. He saw the orthopedist recently and was prescribed oxycodone. He filled the prescription today. He took the first dose over 2 hours ago. Started feeling shaky and just off roughly 30 minutes ago. He states he had a ham sandwich around 6 PM tonight with a hard-boiled egg. Denies any chest pain, shortness of breath, weakness, numbness, vision changes, headache, fever, vomiting, diarrhea, rash, or any other concerns. Allergies and Home Medications Allergies Coded Allergies: No Known Drug Allergies (Unverified , 10/25/18) Patient Home Medication List Home Medication List Reviewed: Yes Amlodipine Besylate (Amlodipine Besylate) 5 Mg Tablet, 5 MG PO DAILY, (Reported) Entered as Reported by: JULIO JAIN on 10/25/18916 Atorvastatin Calcium (Atorvastatin Calcium) 40 Mg Tablet, 40 MG PO HS, (R eported) Entered as Reported by: JULIO JAIN on 10/25/18916 Cyanocobalamin (Vitamin B-12) (Vitamin B12) 5,000 Mcg Tab.rapdis, 5,000 MCG PO DAILY, (Reported) Entered as Reported by: JULIO JAIN on 10/25/18916 Exenatide Microspheres (Bydureon) 2 Mg Vial, SQ WEEK, (Reported) Entered as Reported by: JULIO JAIN on 10/25/18916 Hydrocodone/Acetaminophen (Hydrocodone-Acetamin 5-325 mg) 5 Mg-325 Mg Tablet, 1 TAB PO Q6H PRN for PAIN-MODERATE (5-7) Prescribed by: EDA ORTEGA on 06/18/23 1429 Insulin Aspart (Novolog) 100 Unit/1 Ml Susp, SQ BREAKFAST AND SUPPER, (Reported) Entered as Reported by: JULIO JAIN on 10/25/18 09 Insulin Aspart (Novolog) 100 Unit/1 Ml Susp, 25 UNIT SQ LUNCH, (Reported) Entered as Reported by: JULIO JAIN on 10/25/18916 Insulin Glargine,Hum.rec.anlog (Lantus) 100 Unit/1 Ml Vial, 80 UNIT SQ BID, (Reported) Entered as Reported by: JULIO JAIN on 10/25/18916 Losartan Potassium (Losartan Potassium) 25 Mg Tablet, 25 MG PO DAILY, (Reported) Entered as Reported by: JULIO JAIN on 10/25/18916 Meclizine HCl (Meclizine HCl) 25 Mg Tablet, 25 MG PO BID Prescribed by: LINDA MERCADO on 12/04/18 175 Melatonin (Melatonin) 5 Mg Capsule, 5 MG PO DAILY, (Reported) Entered as Reported by: JULIO JAIN on 10/25/18916 Metformin HCl (Metformin HCl) 500 Mg Tablet, 1,000 MG PO BID, (Reported) Entered as Reported by: JULIO JAIN on 10/25/18916 Metoclopramide HCl (Reglan) 10 Mg Tablet, 10 MG PO ACHS, (Reported) Entered as Reported by: JULIO JAIN on 10/25/18916 Ondansetron HCl (Zofran) 4 Mg Tab, 4 MG PO Q4H PRN for NAUSEA/VOMITING-1ST LINE, (Reported) Entered as Reported by: JULIO JAIN on 10/25/18916 Pantoprazole Sodium (Protonix) 40 Mg Tablet.dr, 40 MG PO DAILY Prescribed by: VIGNESH ARGUELLO on 10/29/18 1056 Ranitidine HCl (Zantac) 150 Mg Tablet, 150 MG PO BID, (Reported) Entered as Reported by: JULIO JAIN on 10/25/18916 Sennosides (Ex-Lax Maximum Strength) 25 Mg Tablet, 25 MG PO HS, (Reported) Entered as Reported by: JULIO JAIN on 10/25/18916 Sertraline HCl (Zoloft) 50 Mg Tablet, 50 MG PO DAILY, (Reported) Entered as Reported by: JULIO JAIN on 10/25/18916 Review of Systems Review of Systems Constitutional: No fever EENTM: no symptoms reported Respiratory: no symptoms reported Cardiovascular: no symptoms reported Gastrointestinal: no symptoms reported Genitourinary: no symptoms reported Musculoskeletal: no symptoms reported Skin: no symptoms reported Psychiatric/Neurological: See HPI Hematologic/Lymphatic: No Symptoms Reported Immunological/Allergic: no symptoms reported Past Mrpajtw-Kgejey-Oddxle Hx Patient Social History Substance use?: No Seasonal Allergies Seasonal Allergies: No Past Medical History Surgeries: No Respiratory: No Cardiac: Yes High Cholesterol, Hypertension Neurological: No Sexually Transmitted Disease: No HIV/AIDS: No Genitourinary: No Gastrointestinal: Yes Gastroesophageal Reflux, Chronic Constipation Musculoskeletal: Yes Arthritis, Chronic Back Pain Endocrine: Yes Diabetes, Insulin dep HEENT: Yes (GLASSES) Loss of Vision: Bilateral Hearing Impairment: Denies Cancer: No Psychosocial: Yes Anxiety, Depression Integumentary: No Blood Disorders: No Adverse Reaction/Blood Tranf: No Physical Exam Vital Signs Vital Signs - First Documented 06/27/23 19:45 Temp 37.0 Pulse 101 Resp 18 B/P (MAP) 149/93 (111) Pulse Ox 99 Capillary Refill : Height, Weight, BMI Height: 5'11.00" Weight: 266lbs. 0.0oz. 120.428685qk; 40.00 BMI Method:Stated General Appearance: No Apparent Distress, WD/WN Eyes: Bilateral Eye Normal Inspection, Bilateral Eye PERRL, Bilateral Eye EOMI HEENT: PERRL/EOMI, Normal ENT Inspection, Pharynx Normal Neck: Full Range of Motion, Normal Inspection, Non Tender, Supple Respiratory: Chest Non Tender, Lungs Clear, Normal Breath Sounds, No Accessory Muscle Use, No Respiratory Distress Cardiovascular: Regular Rate, Rhythm, No Edema, Normal Peripheral Pulses Gastrointestinal: Normal Bowel Sounds, Non Tender, Soft; No Distended, No Guarding Back: Normal Inspection, No CVA Tenderness Extremity: Normal Capillary Refill, Normal Inspection, Normal Range of Motion, Non Tender, No Calf Tenderness, No Pedal Edema Neurologic/Psychiatric: Alert, Oriented x3, No Motor/Sensory Deficits, Normal Mood/Affect Skin: Normal Color, Warm/Dry Progress/Results/Core Measures Suspected Sepsis SIRS Temperature: Pulse: Respiratory Rate: Blood Pressure / Mean: Results/Orders Lab Results Laboratory Tests Test 06/27/23 19:48 Range/Units Glucometer 74 70-110 MG/DL Vital Signs/I&O 06/27/23 19:45 Temp 37.0 Pulse 101 Resp 18 B/P (MAP) 149/93 (111) Pulse Ox 99 Capillary Refill : Progress Note : Progress Note 67-year-old male with above history coming in due to feeling shaky. ABCs were intact and vitals were stable on presentation. Physical exam reassuring including a nonfocal neuro exam. Glucose was 74 here. He states he is typically in the 100s, likely is relatively low for him and could be the reason why he is feeling this way. He was given some juice as well as food. Symptoms are possibly related to oxycodone as an adverse reaction, unlikely to be a true allergic reaction. 20 minutes after giving him juice, I reassessed him and he is feeling better. He states his symptoms are completely gone. Very unlikely to be related to oxycodone and more likely related to his blood sugar. Believe he stable for discharge with outpatient follow-up. He was sent home with strict return precautions Departure Impression Primary Impression: Shakiness Disposition: 01 HOME, SELF-CARE Condition: Stable Departure-Patient Inst. Decision time for Depature: 20:15 Referrals: RONALDO SHERIFF MD (PCP) Primary Care Physician CARMEN ERNST MD (Family) Primary Care Physician Patient Instructions: HYPOGLYCEMIA Add. Discharge Instructions: We think this is more likely related to your sugar being relatively low compared to where you normally are. If you feel this way again, take your blood sugar, and if it is lower than you typically are tried to eat and drink something. Take ibuprofen and/or Tylenol as needed first-line for your pain. If you have pain on top of that then you can take the prescribed oxycodone. Be sure you always eat something before taking the oxycodone. EDA ORTEGA MD Jun 27, 2023 19:55
== END 2023-06-27 20:13 | disposition home or self-care (01) ==
LOC: EDUNIT# 19:38 → ER FS 19:41
DX: R25.1 Tremor, unspecified (principal); E11.9 Type 2 diabetes mellitus without complications; Z79.4 Long term (current) use of insulin
CPT/HCPCS: 82947; 99281